=== PATIENT | male | born 1990 | race African-American/Black ===

== ENCOUNTER 2018-09-16 20:09 | Emergency (ER) | payer MEDICAID ==
[~2018-09-16] VITALS: Ht 175.3 cm; Wt 79.1 kg
[2018-09-16 23:30] VITALS: BP 137/76
== END 2018-09-16 23:36 | disposition home or self-care (01) ==
LOC: ER 21:18
DX: S61.211A Laceration without foreign body of left index finger without damage to nail, initial encounter (principal); J45.909 Unspecified asthma, uncomplicated; F12.10 Cannabis abuse, uncomplicated; W26.0XXA Contact with knife, initial encounter; Y93.89 Activity, other specified; Y92.89 Other specified places as the place of occurrence of the external cause; Y99.8 Other external cause status
CPT/HCPCS: 12001; 99283